=== PATIENT | female | born 1940 | race Caucasian/White ===

== ENCOUNTER 2019-03-18 18:35 | Emergency (ER) | payer MEDICARE ==
[~2019-03-18] VITALS: Ht 157.5 cm; Wt 45.4 kg
[2019-03-18] MEDS ORDERED: NAPR220 PO (18:49)
[2019-03-18 19:40] LABS: BASOPHILS ABSOLUTE AUTO 0.05 K/mm3 (0.00-0.23); BASOPHILS PERCENT AUTO 1 % (0-2); EOSINOPHILS ABSOLUTE AUTO 0.12 K/mm3 (0.00-0.68); EOSINOPHILS PERCENT AUTO 2 % (0-6); Hematocrit 40.1 % (33.0-51.0); Hemoglobin 12.6 g/dL (11.5-16.0); IMMATURE GRAN ABSOLUTE AUTO 0.02 K/mm3 (0.00-0.10); IMMATURE GRAN PERCENT AUTO 0 % (0-1); LYMPHOCYTES ABSOLUTE AUTO 1.18 K/mm3 (0.84-5.20); LYMPHOCYTES PERCENT AUTO 19 % (21-46); MONOCYTES ABSOLUTE AUTO 0.37 K/mm3 (0.16-1.47); MONOCYTES PERCENT AUTO 6 % (4-13); Mean Corpuscular HGB 28.8 pg (26.0-34.0); Mean Corpuscular HGB Conc 31.4 g/dL (31.5-36.5); Mean Corpuscular Volume 92 fL (80-100); Mean Platelet Volume 10.1 fL (9.1-12.4); NEUTROPHILS ABSOLUTE AUTO 4.35 K/mm3 (1.96-9.15); NEUTROPHILS PERCENT AUTO 71 % (41-73); Platelet Count 273 K/mm3 (150-400); RDW Coefficient Variation 12.6 % (11.7-14.2); RDW Standard Deviation 42.9 fL (35.1-46.3); Red Blood Cell Count 4.37 M/mm3 (3.80-5.20); White Blood Cell Count 6.09 K/mm3 (4.00-11.30)
[2019-03-18 19:56] LABS: Troponin I <0.015 ng/mL (0.000-0.040)
[2019-03-18 19:57] LABS: Alanine Aminotransfer (ALT/SGP 12 U/L (12-78); Albumin, Blood 3.9 g/dL (3.4-5.0); Albumin/Globulin Ratio 1.3 (0.8-1.8); Alk Phos 65 U/L (50-136); Anion Gap 3 mmol/L (6-16); Aspartate Aminotrans (AST/SGOT 18 U/L (12-37); Bilirubin, Total 0.5 mg/dL (0.1-1.0); Blood Urea Nitrogen 26 mg/dL (8-24); Bun/Creatinine Ratio 40.4 (12.0-20.0); CO2, Blood 27 mmol/L (21-32); Chloride, Blood 108 mmol/L (98-108); Creatinine, Blood 0.64 mg/dL (0.40-1.00); Globulin, Blood 3.1 g/dL (2.2-4.0); Glomerular Filtration Rate >60 (60-); Glucose, Blood 141 mg/dL (70-99); Potassium, Blood 4.6 mmol/L (3.5-5.5); Sodium, Blood 138 mmol/L (136-145)
== END 2019-03-18 20:21 | disposition home or self-care (01) ==
LOC: ER 18:35
PROVIDERS: Physician Assistant
DX: R55 Syncope and collapse (principal); M54.9 Dorsalgia, unspecified; G89.29 Other chronic pain; Z87.891 Personal history of nicotine dependence
CPT/HCPCS: 70450; 71046; 80053; 84484; 85025; 93005; 93010; 99285-25

== ENCOUNTER 2019-05-07 18:40 | Emergency (ER) | payer MEDICARE ==
[~2019-05-07] VITALS: Ht 167.6 cm; Wt 40.8 kg
[~2019-05-07 18:40] MED LIST: NAPR220 PO
[2019-05-07 19:43] LABS: BASOPHILS ABSOLUTE AUTO 0.04 K/mm3 (0.00-0.23); BASOPHILS PERCENT AUTO 0 % (0-2); EOSINOPHILS ABSOLUTE AUTO 0.06 K/mm3 (0.00-0.68); EOSINOPHILS PERCENT AUTO 1 % (0-6); Hematocrit 38.1 % (33.0-51.0); Hemoglobin 12.3 g/dL (11.5-16.0); IMMATURE GRAN ABSOLUTE AUTO 0.06 K/mm3 (0.00-0.10); IMMATURE GRAN PERCENT AUTO 1 % (0-1); LYMPHOCYTES ABSOLUTE AUTO 1.01 K/mm3 (0.84-5.20); LYMPHOCYTES PERCENT AUTO 8 % (21-46); MONOCYTES ABSOLUTE AUTO 0.64 K/mm3 (0.16-1.47); MONOCYTES PERCENT AUTO 5 % (4-13); Mean Corpuscular HGB 28.7 pg (26.0-34.0); Mean Corpuscular HGB Conc 32.3 g/dL (31.5-36.5); Mean Corpuscular Volume 89 fL (80-100); Mean Platelet Volume 9.8 fL (9.1-12.4); NEUTROPHILS ABSOLUTE AUTO 10.95 K/mm3 (1.96-9.15); NEUTROPHILS PERCENT AUTO 86 % (41-73); Platelet Count 304 K/mm3 (150-400); RDW Coefficient Variation 13.2 % (11.7-14.2); RDW Standard Deviation 42.6 fL (35.1-46.3); Red Blood Cell Count 4.28 M/mm3 (3.80-5.20); White Blood Cell Count 12.76 K/mm3 (4.00-11.30)
[2019-05-07 19:57] LABS: Alanine Aminotransfer (ALT/SGP 13 U/L (12-78); Albumin, Blood 3.6 g/dL (3.4-5.0); Albumin/Globulin Ratio 0.9 (0.8-1.8); Alk Phos 101 U/L (50-136); Anion Gap 7 mmol/L (6-16); Aspartate Aminotrans (AST/SGOT 21 U/L (12-37); Bilirubin, Total 0.7 mg/dL (0.1-1.0); Blood Urea Nitrogen 20 mg/dL (8-24); Bun/Creatinine Ratio 38.8 (12.0-20.0); CO2, Blood 27 mmol/L (21-32); Calcium, Blood 9.2 mg/dL (8.5-10.1); Chloride, Blood 104 mmol/L (98-108); Creatinine, Blood 0.52 mg/dL (0.40-1.00); Globulin, Blood 3.8 g/dL (2.2-4.0); Glomerular Filtration Rate >60 (60-); Glucose, Blood 128 mg/dL (70-99); Potassium, Blood 4.1 mmol/L (3.5-5.5); Sodium, Blood 138 mmol/L (136-145); Total Protein, Blood 7.4 g/dL (6.4-8.2)
[2019-05-07 20:51] LABS: Source, Urine Clean Catch
[2019-05-07 21:03] LABS: Blood, Urine 2+ (Neg); Glucose Qualitative, Urine Neg (Neg); Ketones, Urine 2+ (Neg); Leukocyte Esterase, Urine 1+ (Neg); Nitrite, Urine Neg (Neg); Protein, Urine 2+ (Neg); Specific Gravity, Urine 1.025 (1.003-1.022); Urobilinogen, Urine 2+ (Normal)
[2019-05-07 21:08] LABS: Bilirubin, Urine 1+ (Neg)
[2019-05-07 21:09] LABS: Appearance, Urine Clear (Clear); Color, Urine Yellow (P-Yellow); White Blood Cells, Urine 0-2 /hpf (0-5)
[2019-05-07 21:10] LABS: Bacteria Few /hpf; Squamous Epithelial Cells Rare /hpf (Few)
[2019-05-07] MEDS ORDERED: Acetaminophen-1 EAC1 PO (21:32)
[2019-05-07] MEDS ORDERED: Robaxin-750750 MG PO (21:32)
[2019-05-07] MEDS ORDERED: CEPH500 PO (21:32)
== END 2019-05-07 23:53 | disposition home or self-care (01) ==
LOC: ER 18:40
PROVIDERS: Physician Assistant
DX: S39.012A Strain of muscle, fascia and tendon of lower back, initial encounter (principal); N39.0 Urinary tract infection, site not specified; X58.XXXA Exposure to other specified factors, initial encounter
CPT/HCPCS: 36415; 74176; 80053; 81001; 83690; 85025; 87086; 93005; 93010; 96374; 96375; 99284-25; A9270-GY; J2405; J3010; P9612

== ENCOUNTER 2020-03-29 09:26 | Inpatient (IN) | payer MEDICARE ==
[~2020-03-29] VITALS: Ht 162.6 cm; Wt 32.0 kg
[~2020-03-29 09:26] MED LIST changes: +Acetaminophen-1 EAC1 PO; +CEPH500 PO; +ONDA4ODT SL; +Robaxin-750750 MG PO
[2020-03-29 10:28] LABS: BASOPHILS ABSOLUTE AUTO 0.09 K/mm3 (0.00-0.23); BASOPHILS PERCENT AUTO 0 % (0-2); Hematocrit 34.7 % (33.0-51.0); Hemoglobin 11.1 g/dL (11.5-16.0); LYMPHOCYTES ABSOLUTE AUTO 0.35 K/mm3 (0.84-5.20); LYMPHOCYTES PERCENT AUTO 1 % (21-46); MONOCYTES ABSOLUTE AUTO 0.56 K/mm3 (0.16-1.47); MONOCYTES PERCENT AUTO 2 % (4-13); Mean Corpuscular HGB 29.7 pg (26.0-34.0); Mean Corpuscular Volume 93 fL (80-100); RDW Coefficient Variation 16.3 % (11.7-14.2); RDW Standard Deviation 55.6 fL (35.1-46.3); Red Blood Cell Count 3.74 M/mm3 (3.80-5.20); White Blood Cell Count 31.93 K/mm3 (4.00-11.30)
[2020-03-29 10:34] LABS: EOSINOPHILS PERCENT AUTO 0 % (0-6); IMMATURE GRAN ABSOLUTE AUTO 0.22 K/mm3 (0.00-0.10); IMMATURE GRAN PERCENT AUTO 1 % (0-1); Mean Platelet Volume 9.7 fL (9.1-12.4); NEUTROPHILS ABSOLUTE AUTO 30.71 K/mm3 (1.96-9.15); NEUTROPHILS PERCENT AUTO 96 % (41-73); Platelet Count 341 K/mm3 (150-400)
[2020-03-29 10:51] LABS: Magnesium, Blood 2.2 mg/dL (1.6-2.4)
[2020-03-29 10:57] LABS: Alanine Aminotransfer (ALT/SGP 19 U/L (12-78); Albumin, Blood 2.2 g/dL (3.4-5.0); Albumin/Globulin Ratio 0.6 (0.8-1.8); Alk Phos 224 U/L (50-136); Anion Gap 12 mmol/L (6-16); Aspartate Aminotrans (AST/SGOT 39 U/L (12-37); Bilirubin, Total 1.9 mg/dL (0.1-1.0); Blood Urea Nitrogen 55 mg/dL (8-24); Bun/Creatinine Ratio 67.9 (12.0-20.0); CO2, Blood 24 mmol/L (21-32); Chloride, Blood 103 mmol/L (98-108); Creatinine, Blood 0.81 mg/dL (0.40-1.00); Globulin, Blood 3.7 g/dL (2.2-4.0); Glomerular Filtration Rate >60 (60-); Glucose, Blood 108 mg/dL (70-99); Potassium, Blood 4.6 mmol/L (3.5-5.5); Sodium, Blood 139 mmol/L (136-145); Total Protein, Blood 5.9 g/dL (6.4-8.2)
[2020-03-29 11:13] LABS: Source, Urine Catheter
[2020-03-29 11:20] LABS: Appearance, Urine Clear (Clear); Blood, Urine 1+ (Neg); Color, Urine Amber (P-Yellow); Glucose Qualitative, Urine Neg (Neg); Ketones, Urine 2+ (Neg); Leukocyte Esterase, Urine 1+ (Neg); Nitrite, Urine Neg (Neg); Protein, Urine 2+ (Neg); Specific Gravity, Urine 1.025 (1.003-1.022); Urobilinogen, Urine 3+ (Normal)
[2020-03-29 11:36] LABS: Bilirubin, Urine 2+ (Neg)
[2020-03-29 11:38] LABS: Bacteria Few /hpf; Mucus Heavy (0-Heavy); Red Blood Cells, Urine 0-2 /hpf (0-2); Squamous Epithelial Cells Few /hpf (Few)
--- NOTE | 2020-03-29 17:28 | NUR ---
pt arrived to pcu 1 via gurney from ED. pt is emaciated, poor skin turgor, she is not able to answer questions, moans when moved, she apparently lays on her right side continually, lungs are clear in upper davis, dim in bases, resp even and unlabored, no cough noted, severe spinal kyphosis, ext are very cold to touch abhi feet, toes are purple, bruising to bottom of feet, hrr, tele in place running sr per monitor, see strip, 2+ pitting edema noted to b/l le, iv site to right hand is clear and patent, infusing ns bolus at this time, then will turn down to 50mls/hr, bt not auscultated, attends in place, very stiff, curled up on side, skin has multiple wounds, see pictures, dressings placed, bren area is bruised, call light in reach.
--- NOTE | 2020-03-30 01:05 | NUR ---
IV START PT IV CAME OUT OF L HAND. PT WAS LAYING ON SIDE, USING HAND FOR SUPPORT. IV CATHETER CAME PARTIALLY OUT AND KINKED. IV FULLY REMOVED. RESTARTED IV IN R FOREARM. INFUSING WITH NS PER EMAR.
[2020-03-30 04:11] LABS: Hematocrit 31.1 % (33.0-51.0); Mean Corpuscular HGB 29.5 pg (26.0-34.0); Mean Corpuscular HGB Conc 32.2 g/dL (31.5-36.5); Mean Corpuscular Volume 92 fL (80-100); Mean Platelet Volume 10.1 fL (9.1-12.4); Platelet Count 349 K/mm3 (150-400); RDW Coefficient Variation 16.5 % (11.7-14.2); RDW Standard Deviation 55.8 fL (35.1-46.3); Red Blood Cell Count 3.39 M/mm3 (3.80-5.20)
[2020-03-30 04:34] LABS: Alanine Aminotransfer (ALT/SGP 16 U/L (12-78); Albumin, Blood 1.6 g/dL (3.4-5.0); Albumin/Globulin Ratio 0.6 (0.8-1.8); Alk Phos 158 U/L (50-136); Anion Gap 10 mmol/L (6-16); Aspartate Aminotrans (AST/SGOT 23 U/L (12-37); Bilirubin, Total 0.9 mg/dL (0.1-1.0); Blood Urea Nitrogen 46 mg/dL (8-24); Bun/Creatinine Ratio 74.6 (12.0-20.0); CO2, Blood 23 mmol/L (21-32); Calcium, Blood 6.7 mg/dL (8.5-10.1); Chloride, Blood 113 mmol/L (98-108); Creatinine, Blood 0.62 mg/dL (0.40-1.00); Globulin, Blood 2.9 g/dL (2.2-4.0); Glomerular Filtration Rate >60 (60-); Glucose, Blood 81 mg/dL (70-99); Sodium, Blood 146 mmol/L (136-145); Total Protein, Blood 4.5 g/dL (6.4-8.2)
[2020-03-30 04:39] LABS: BAND PERCENT MAN 20 % (0-8); BASOPHILS PERCENT MAN 0 % (0-2); EOSINOPHILS PERCENT MAN 0 % (0-6); MONOCYTES PERCENT MAN 4 % (4-13); NEUTROPHILS ABSOLUTE MAN 24.19 K/mm3 (1.96-9.15); SEG NEUTROPHILS PERCENT MAN 76 % (41-73); TOTAL CELLS COUNTED 100
--- NOTE | 2020-03-30 05:38 | NUR ---
SHIFT SUMMARY PT ALERT, ABLE TO MAKE NEEDS KNOWN. DOES NOT USE CALL LIGHT, MOANS, CALLS OUT WHEN HAS A NEED. ABLE TO STATE NAME, . SP02>90% ON RA. POOR PERFUSION/DIFFICULT TO GET SP02 MONITOR TO READ. TELEMETRY READS SR W/ PACS, HR 70'S-90'S. PT C/O OF 810 PAIN "ALL OVER". PT CALLED OUT "MAMA" "IM SICK" MULTIPLE TIMES. FREQUENT REPOSITIONING, WARM BLANKETS, PILLOWS, AND MEDICATED WITH TYLENOL PER EMAR. PT C/O THIS SHIFT OF "FEEL LIKE I HAVE TO THROW UP." MEDICATED W/ ZOFRAN PER EMAR WITH SUCCESSFUL RELIEF OF NAUSEA. PT SEVERELY EMACIATED, MULTIPLE WOUNDS. VERY WEAK. MEPLEX C/D/I. PT UNABLE TO DRINK WATER W/ STRAW, COULD NOT SUCK. PT ABLE TO DRINK WITH SPOON W/ ASSISTANCE. PT HAD ONE WET ATTENDS THIS SHIFT. ATTENDS C/D IN PLACE. NS INFSUING PER EMAR. PT POTASSIUM WAS 3.0 THIS MORNING. CALL PLACED TO MD ROSALES. MD ROSALES WITH ORDERS FOR IV POTASSIUM. CALL LIGHT IN REACH. WILL CONTINUE TO MONITOR.
--- NOTE | 2020-03-30 07:25 | NUR ---
pt laying in bed, opens eyes with name, asking for water, much more responsive than last night, lungs are clear t/o, dim in bases, resp even and unlabored, no cough noted, hrr, tele in place running sr with pac's, 2+ edema noted to b/l le, is less than last night, pp found with doppler, feet are still cool to touch, but less than last night, iv site to lfa site is clear and patent, infusing fluids and k+ as ordered, btx4, hypoactive, attends in place, skin has multiple wounds and bruisings, pictures in chart, dressings to open wounds, isnt moving herself yet, sheron, call light in reach, gave her some thickened water via spoon, she took that without diff.
--- NOTE | 2020-03-30 12:09 | NUR ---
Rylee sat up in a recliner for a few hrs. O.T. got her back to bed, she isn't wanting to be disturbed at this time. [place], call light in reach.
--- NOTE | 2020-03-30 17:59 | NUR ---
PT HAS BEEN RESTING QUIETLY MOST OF THE DAY, SHE DID TAKE ABOUT 20% OF A SUPPLIMENT, IS ASKING FOR WATER, WILL GIVE THAT AND SOME DINNER, NO FURTHER CHANGES THIS SHIFT, CALL LIGHT IN REACH.
--- NOTE | 2020-03-30 19:34 | NUR ---
Clinical Visit: Called to pt's room to talk to the pt's grandson. She lives with the heron, although it is not clear if he moved in with her (her home), or if she moved into his home. He states that he has gradually, over the last 1 month, watched the pt's condition decline. As he stated, he took the pt to Dr. Koch and was told that she had a UTI. When she wasn't getting better and on the second day she had stopped drinking water, he called the ambulance. He reports that she has become a non-ambulatory person - she has withdrawn from the family and didn't want to come to family dinner. She had stopped eating for a couple weeks and then she stopped drinking anything. He states that she has been telling him, "get away" when he is trying to help clean her in the shower. She is not allowing care from him many time, per his report. His and daughter live with them. is the main caregiver and he fills in after work and takes her to her appointments. This development writer discussed the pt's condition. He is wanting her to remain full code. He has no documentation of pt's wishes. This development writer attempted to talk to her about resusitation after he left. Pt complains of nausea, difficulty breathing, and back pain. This was reported to nurse, Khalida Gaxiola. Grandson was very attentive to pt while he was here visiting.
[2020-03-31 05:28] LABS: BASOPHILS ABSOLUTE AUTO 0.04 K/mm3 (0.00-0.23); BASOPHILS PERCENT AUTO 0 % (0-2); EOSINOPHILS PERCENT AUTO 0 % (0-6); Hematocrit 32.1 % (33.0-51.0); Hemoglobin 10.2 g/dL (11.5-16.0); IMMATURE GRAN ABSOLUTE AUTO 0.16 K/mm3 (0.00-0.10); IMMATURE GRAN PERCENT AUTO 1 % (0-1); LYMPHOCYTES PERCENT AUTO 3 % (21-46); MONOCYTES ABSOLUTE AUTO 0.31 K/mm3 (0.16-1.47); MONOCYTES PERCENT AUTO 2 % (4-13); Mean Corpuscular HGB Conc 31.8 g/dL (31.5-36.5); Mean Corpuscular Volume 91 fL (80-100); NEUTROPHILS ABSOLUTE AUTO 15.83 K/mm3 (1.96-9.15); NEUTROPHILS PERCENT AUTO 94 % (41-73); Platelet Count 327 K/mm3 (150-400); RDW Coefficient Variation 16.9 % (11.7-14.2); RDW Standard Deviation 56.5 fL (35.1-46.3); Red Blood Cell Count 3.52 M/mm3 (3.80-5.20); White Blood Cell Count 16.84 K/mm3 (4.00-11.30)
[2020-03-31 06:20] LABS: Anion Gap 7 mmol/L (6-16); Blood Urea Nitrogen 43 mg/dL (8-24); Bun/Creatinine Ratio 72.1 (12.0-20.0); CO2, Blood 23 mmol/L (21-32); Calcium, Blood 6.7 mg/dL (8.5-10.1); Chloride, Blood 116 mmol/L (98-108); Glomerular Filtration Rate >60 (60-); Glucose, Blood 103 mg/dL (70-99); Potassium, Blood 3.9 mmol/L (3.5-5.5); Sodium, Blood 146 mmol/L (136-145)
--- NOTE | 2020-03-31 07:34 | NUR ---
SHIFT SUMMARY START OF SHIFT PT COMPLAINED OF NAUSEA AND DIFFICULTY BREATHING. PRN ZOFRAN WAS GIVEN AND PT STATED NO MORE NAUSEA. PT WAS ALSO PLACED ON 2LPM VIA NC WITH O2 SATS IN THE HIGH 90'S AND PT WAS NO LONGER SOB. PT WAS ON 2LPM FOR ABOUT 3 HOURS THEN PT PULLED NC AND WAS ON RA WITH O2 SATS IN THE 90'S. BP WAS HYPOTENSIVE AROUND 100 SYSTOLIC WITH HR ABOUT 100BPM T/O SHIFT. PT HAD NO COMPLAINTS OF PAIN AND WAS TURNED EVERY TWO HOURS. PICTURES OF WOUNDS ARE IN THE PT'S CHART, AND ARE DRESSED WITH MEPILEX. PT PULLED OUT IV SO A NEW ONE WAS STARTED. PT SEEMED CONFUSED AT TIMES BUT WAS ABLE TO FOLLOW DIRECTIONS. SHE WOULD CALL OUT WANTING TO GO HOME TO [place] AND THAT SHE WAS SICK AND "READY TO ". PT IS MALNURISHED AND WEAK. PT ASLEEP IN BED, WILL CONTINUE TO MONITOR UNTIL SHIFT CHANGE.
--- NOTE | 2020-03-31 11:50 | NUR ---
LATE ENTRY PT TRANSFERED TO ROOM 310;TELEPHONE REPORT GIVEN TO MAUREEN RN ASSUMING CARE OF PT. PT A&O TO SELF; ANSWERING QUESTIONS APPROPREIATELY. PT REPORTS NAUSEA; MEDCIATED PER EMAR. PT DENIES, SOB, NAUSEA AND DIZZINESS. VSS. NO OTHER ACUTE CHAGNES NOTED DURING SHIFT. PT TRANSFERED AT 1147.
--- NOTE | 2020-03-31 11:59 | NUR ---
PT ARRIVED TO ROOM 310 FROM PCU 1 VIA BED. ORIENTED TO ROOM AND CALL SYSTEM. PT ARRIVED WITH IVF INFUSING, IV ROCEPHIN STARTED AFTER PT ARRIVAL. BED IN LOWEST POSITION, CALL HAQUE IN REACH, WILL CONTINUE TO MONITOR.
--- NOTE | 2020-03-31 15:14 | NUR ---
Clinical Visit: Requested to set up a meeting with the grandson by physician. Call made to pt's grandsonJoe. Attempted to set up a time when he can come in and meet with the physician to discuss plan of care. At this time, he becomes irritable with the phone call and is demanding that the doctor be retrieved and placed on the phone call. He tells this RN that he will NOT be coming to the hospital unless he speaks to the doctor FIRST so that he can be told "what is wrong with my grandma?" Attempted to review pt's condition and findings. This was met with an escalation to yelling by the grandson and the call was ended by himself hanging up. Pt is not oriented to place. She does not know the month or year, and as this proposal writer is asking questions, she begins to cry and states, "I don't know, I don't know." Several attempts made to interact with this pt, however, she is crying and reporting, "I can't breathe, I feel terrible." She reports nausea. Updated bedside nurse, Kandis. Conference with Maria L, charge nurse. She reports that the pt's grandson called the medical floor. She was able to soothe the grandson by reviewing the chart with him. Maria L reports that her conversation led to a resolution and de-escalation of Joe's outburst. Maria L states that the grandson agreed to come visit when he gets off work this afternoon.
--- NOTE | 2020-03-31 18:14 | NUR ---
Clinical Visit; Pt is sitting up in bed on my arrival to the room. Daniel is at bedside and helping pt with a chocolate milk shake and some water. Myron, Joe, is immediately provacative and accusatory in tone and states, "where is the doctor? I told them I would be here at 5:15, so where is the doctor? I can't be here right now, my daughter is sitting in the lobby because you people won't let her in." (Joe's daughter is 11 years old and is not allowed in the hospital due to COVID times protocol for visitors). Joe is standing up and making large gestures with his hands and speaking loudly. "And where the heck did she get this from?" He is showing me the pressure ulcer behind the pt's right ear. He states, "I'd like to know where that came from because that was not there when she came in." At this time, Dr. Koo comes to the room for the conference. During visit, Joe makes such statements as: "See, she looks better. It was just the UTI." "When she stopped eating, I threatened her with taking away her dog and taking away her TV and she still didn't eat. See kiki, I told you you shoulda eaten something." "Lupe, you're refusing care? See, she does this at home too." Several attempts by Dr. Koo to explain resusitation and pt's present condition - all of which are met with loud, explosive statements and constant interruption. Dr. Koo does get the pt's code status changed to DNI/DNR after relaying her conversation with the pt earlier to Joe in which she expressed that she did not want CPR and she did not want intubation. Joe left the hospital in outrage. Reviewed with Dr. Koo after he left. Will attempt to find other family members for this patient. Myron has not produced any paperwork that gives him decision making power for the pt and additionally, he may not be appropriate for decision making given his presentation in the hospital tonight. He displayed a large lack of understanding of Dr. Koo' recommendations or of understanding the pt's current health condition and illness. Palliative care to continue working on this case as pt is very ill and prognosis of recovery is poor. powder worker tnt consult for finding pt's other family members, if any. Joe did mention during conversation last night that his mother is "technically supposed to be taking care of her, but she wasn't, so I brought her [patient] to [facility] last year and then kept her because they weren't takin care of her."
[2020-04-01 05:11] LABS: BASOPHILS ABSOLUTE AUTO 0.02 K/mm3 (0.00-0.23); BASOPHILS PERCENT AUTO 0 % (0-2); EOSINOPHILS PERCENT AUTO 0 % (0-6); Hematocrit 34.2 % (33.0-51.0); Hemoglobin 10.7 g/dL (11.5-16.0); IMMATURE GRAN ABSOLUTE AUTO 0.09 K/mm3 (0.00-0.10); IMMATURE GRAN PERCENT AUTO 1 % (0-1); LYMPHOCYTES ABSOLUTE AUTO 0.76 K/mm3 (0.84-5.20); LYMPHOCYTES PERCENT AUTO 7 % (21-46); MONOCYTES ABSOLUTE AUTO 0.33 K/mm3 (0.16-1.47); MONOCYTES PERCENT AUTO 3 % (4-13); Mean Corpuscular HGB 29.1 pg (26.0-34.0); Mean Corpuscular HGB Conc 31.3 g/dL (31.5-36.5); Mean Corpuscular Volume 93 fL (80-100); Mean Platelet Volume 10.1 fL (9.1-12.4); NEUTROPHILS ABSOLUTE AUTO 9.01 K/mm3 (1.96-9.15); NEUTROPHILS PERCENT AUTO 88 % (41-73); Platelet Count 286 K/mm3 (150-400); RDW Coefficient Variation 17.4 % (11.7-14.2); RDW Standard Deviation 59.9 fL (35.1-46.3); Red Blood Cell Count 3.68 M/mm3 (3.80-5.20); White Blood Cell Count 10.21 K/mm3 (4.00-11.30)
[2020-04-01 05:25] LABS: Anion Gap 4 mmol/L (6-16); Blood Urea Nitrogen 28 mg/dL (8-24); Bun/Creatinine Ratio 62.9 (12.0-20.0); CO2, Blood 25 mmol/L (21-32); Calcium, Blood 6.6 mg/dL (8.5-10.1); Chloride, Blood 118 mmol/L (98-108); Creatinine, Blood 0.45 mg/dL (0.40-1.00); Glomerular Filtration Rate >60 (60-); Glucose, Blood 106 mg/dL (70-99); Potassium, Blood 3.8 mmol/L (3.5-5.5); Sodium, Blood 147 mmol/L (136-145)
--- NOTE | 2020-04-01 18:27 | NUR ---
PT SLEPT MOST OF THE SHIFT, ALERT AND ORIENTED X3 WHEN AWAKE. EXTREMELY POOR APPETITE, TAKES MEDS WITH APPLESAUCE BUT REFUSES MEALS BEYOND A FEW BITES. SHE CAN AND WILL DRINK WATER AND PEPSI IF ABLE TO REACH THEM. SHE WAS ABLE TO SPEAK WITH HER GRANDSON ON THE PHONE THIS AFTERNOON BUT TIRES EASILY. NO ACUTE CHANGES NOTED THIS SHIFT, WILL CONTINUE TO MONITOR AND REPORT TO ONCOMING RN.
--- NOTE | 2020-04-01 19:15 | NUR ---
ASSUMED CARE RECEIVED REPORT FROM LEONARDO BURDICK. ASSUMED CARE OF PT. RESTING COMFORTABLY, NO S/S ACUTE DISTRESS NOTED, RESPS EVEN AND UNLABORED. DENIES NEEDS. CALL LIGHT, POSSESSIONS IN REACH, BED IN LOW POSITION WITH ALARMS ON. WCTM.
--- NOTE | 2020-04-02 07:10 | NUR ---
SHIFT SUMMARY PT RESTING, NO S/S ACUTE DISTRESS NOTED, WAS MONITORED EVERY 1-2 HOURS WITH NEEDS MET. PAIN AND NAUSEA MANAGED WITH MEDS PER EMAR, SOMEWHAT EFFECTIVE. VS REVIEWED. REPOSITIONED T/O NIGHT. NEW PICS IN CHART OF RT CHEEK, ENCOURAGED PT TO LAY ON OPPOSITE SIDE TO PREVENT WORSENING OF PRESSURE SORE. VS REVIEWED. CALL LIGHT AND POSSESSIONS IN REACH, BED IN LOW POSITION WITH ALARM ON. REPORT GIVEN TO TIFFANIE,RNS.
--- NOTE | 2020-04-02 14:51 | NUR ---
pt alone in room this am compalins of headache and nausea updated nursing. Will follow up with plan of care.
--- NOTE | 2020-04-02 17:29 | NUR ---
SHIFT SUMMARY PT AOX4. PT CALLS APPROPRIATELY; HOWEVER VERY LETHARGIC DUE TO MALNUTRITION. ST CAME IN AND REAL ESTATE OFFICE MANAGER FOR CONSULT- WILL PROBABLY BE NEEDING SOME PARENTERAL NUTRITION. PT HAS NO APPETITE AND HAS BEEN NAUSEATED ALL DAY; MEDICATER PER EMAR. PT ALSO C/O HEADACHE; AND MEDICATER PER EMAR. PT HAS A SCATTERED BRUISING, AND ULCER BEHIND EAR- SEE PIC- DIALYSIS RN. ENCOURAGED FLUIDS. BED IS IN THE LOWEST POSITION AND CALL LIGHTS WITHIN REACH.
--- NOTE | 2020-04-02 18:09 | NUR ---
Spiritual care intial note: Mrs. Banuelos appears quite frail and is very tired. she complained of pain in her leg. RN informed. It appeared she was too weak to engage conversation. she seems older than age. No family at bedside. Prayer provided. I will remain available.
--- NOTE | 2020-04-02 18:34 | NUR ---
PT DISCHARGED TODAY VIA WC AND TRANSPORTED TO HOME. PT PROVIDED INSTRUCTIONS AND HANDOUTS. PT ALSO INSTRUCTED FOR UPCOMING APPOINTMENTS. PT WENT HOME WITH PICC LINE FOR ABX FOR 3 MORE DAYS AND WILL BE MANAGING BY HOMEHEALTH. PAYROLL SERVICES ANALYST CAME IN AND EXPLAINED MORE INSTRUCTIONS TO THIS PT.
--- NOTE | 2020-04-02 18:44 | NUR ---
PATIENTS ELÍAS PACK AT BEDSIDE VERY UPSET AND YELLING AT STAFF THAT HE PLANS TO GET HARD CANDY SPINNER INVOLVED BECAUSE HE WAS NOT CONTACTED TODAY. HE IS VERY CONCERNED THAT WOUNDS TO PATIENTS FACE LOOK WORSE THAN WHEN SHE WAS BROUGHT IN. DISCUSSED PATIENTS CURRENT SITUATION AND THAT SHE IS NOT EATING AND IS HAVING SOME FAILURE TO THRIVE. SHOWED HIM THAT WE DID HAVE PICTURES OF PATIENTS WOUND ON ADMIT AND AGAIN TODAY SHOWING THE PROGRESSION OF THE WOUNDS. NOTIFIED DR. MYLES ABOUT ELÍAS BEING HERE AND HIS CONCERNS. DR. MYLES UNABLE TO COME BY AT THIS TIME, BUT WILL BE BY TOMORROW TO SEE PATIENT. I ASSURED SIRENA THAT THE DOCTORS AND THE CARE MANAGERS WILL CONTACT HIM TOMORROW AND THAT A MEETING COULD BE SET UP TO DISCUSS PATIENTS CARE MOVING FORWARD. SIRENA DID CALM DOWN AND SAID HE COULD BE AVAIALBLE ANYTIME TOMORROW FOR A MEETING. HE STATED THAT HE DOES WORK TOMORROW BUT THAT HE LEAVES HIS CELL PHONE WITH HIS AND IF WE CALLED HIS CELL PHONE HIS CAN GET A HOLD OF HIM AT HIS WORK.
--- NOTE | 2020-04-03 05:57 | NUR ---
SHIFT SUMMARY- PT. RESTED T/O THE SHIFT, NO APPARENT DISTRESS NOTED. C/O NA 1X, MEDICATED PER EMAR WITH GOOD EFFECT. PT. REPOSITIONED T/O THE SHIFT AND ENCOURAGED PO INTAKE, ABLE TO USE SIPPY CUP INDEPENDENTLY. HAD 3BM'S DURING THE NIGHT. ATTENDS IN PLACE. NEW MEPILEX DSG'S APPLED TO SACRAL AREA AND LT HIP. TOLERATED WELL. NO OTHER COMPLAINTS T/O THE NIGHT. CALL LIGHT WITHIN REACH AND SIDE RAILS UPX2. WILL CONT TO MONITOR.
--- NOTE | 2020-04-03 10:26 | NUR ---
CALLED ELÍAS RUIZ, AND LEFT A MESSAGE 2X.
--- NOTE | 2020-04-03 14:40 | NUR ---
Pt resting in bed this morning. wrsening facial wound. Called her daughter Cleopatra. Review of patient hospitalization and needs. Cleopatra is willing to be POA and decision maker. Asked her to call her nephew and family to relay that we will support and help her nephew any way we can. Cleopatra relayed it was difficult situation ofr family. He has done ok caring for her but he sis very stressed. She will contact family plan is to facilitate face time or zoom with her mother. updated care connector and nursing. Daughter relayed that her mother has had years of eating disorders and worried about her weight and has had great struggles with food. pt kps score is 30% if her facial wound compromises swallow or airway suggest hospice and supportive care sooner than later.
--- NOTE | 2020-04-03 17:02 | NUR ---
PT GRANDSON CALLED TODAY, AND AWARE THAT DOCTOR WILL ONLY BE HERE TILL 5; HE STATED THAT HE WANTED TO BE HERE TODAY; HOWEVER HE GOT OFF WORK LATE. HE ALSO STATED THAT HE IS AWARE THAT MARK WHO IS THE DAUGHTER OF THE PT WILL BE INVOLVE FOR THIS PATIENT CARE. AND HE STATED THAT HE WANTS TO JOIN THE CONFERENCE WITH MARK, THE IAN LUNA AND THE PT.
--- NOTE | 2020-04-03 18:34 | NUR ---
SHIFT SUMMARRY PT ALERT ORIENTED; VERY HARD OF HEARING. PT IS NOW ON CLINIMIX AND LIPIDS SINCE SHE CANT TOLERATE PO. PT REFUSED PO MEDS THIS MORNING AND NAUSEATED; MEDICATED PER EMAR. PT MEPELEX ON COCCYX INTACT AND CHANGED TODAY- MULTIPLE ULCERS. PT ALSO HAS ULCER ON HER CHEEK- SEE PIC. CARLEEN PATTERSON CHANGED THE DRESSING TODAY. GRANDSON SUPPOSED TO HAVE A MEETING WITH THE DR TODAY; CALLED HIM AND LEFT A MESSAGE THIS MORNING. HE CALLED BACK LATE IN THE AFTERNOON; AND HE'S AWARE THAT DR BARR WON'T BE HERE ANYMORE AROUND THAT TIME. PT STATED THAT HE WANTED TO HAVE CONFERENCE WITH MARK- THE DAUGHTER OF PT WITH AND COOPERER POSSIBLY TOMORROW . ENCOURAGED PO FOR THIS PT. BED IS IN THE LOWEST POSITION AND CALL LIGHTS WITHIN REACH.
--- NOTE | 2020-04-03 22:56 | NUR ---
REPOSITIONED REQUESTED DRINK OF WATER, BUT UNABLE TO DRINK FROM SIPPY CUP. TOLERATED WATER WITH STRAW. IV CLINIMIX INFUSING. SEE MAR FOR DETAILS. CALL LIGHT IN REACH
--- NOTE | 2020-04-04 03:45 | NUR ---
SHIFT SUMMARY HAS BEEN AWAKE AT INTERVALS. INTERMITTENT CALLING OUT FOR WATER, ETC. USING STRAW THIS SHIFT SHE VOICED INABILITY TO DRINK FROM THE SIPPY CUP. SRESSINGS INTACT. REPOSITIONED OFTEN. CLINIMIX INFUSING PER JUL. CALL LIGHT IN REACH
--- NOTE | 2020-04-04 10:30 | NUR ---
Called pt daughter this morning to review her needs. Cleopatra spoke with all the family yesterday and will take over as decision maker. Her sister is recovering from a hip fracture and the patients nephew is struggling with hte stress and burden. Cleopatra is planning on coming to [place] to assist with her mothers care. We had a zoom call with the patient. It was very theraputic for the patient. ANd informative for Cleopatra to see her decline. We discussed her symptoms and poor tolerance of food and review of speech evmaribell and her mothers further decline in appetite.
--- NOTE | 2020-04-04 17:33 | NUR ---
ALERT. VERY MALNOURISHED. CACHETIC LOOKING. KYPHOSIS. HAS REFISED ALL FOOD TODAY. SLEEPING MOST OF SHIFT. MEPILEX TO RT FACE, COCCYX AND BILATERAL FEET. WEAK PULSES UPPER EXT. PULSES VIA DOPPLER LOWER EXT. UNLABORED RESPIRATIONS. TURNED, BUT WILL CURL INTO BALL ONTO RT SIDE. TM
--- NOTE | 2020-04-05 03:28 | NUR ---
SHIFT SUMMARY: 79 Y/O FEMALE ON COMFORT CARE HAD UNEVENTFUL NIGHT; PT ALERT AND ORIENTED X 2, ABLE TO FOLLOW SIMPLE VERBAL COMMANDS; PT RIGHT FACIAL/NECK AREA SWOLLEN WITH EDMATOUS NOTED AND BLACKENED AREA ALONG NECK (PT WILL NOT KEEP MEPLEX APPLIED TO SITE SHE KEEPS REMOVING AFTER THIS NURSE APPLIED X 2); BED ALARM APPLIED, BED LOW POSITION WITH CALL LIGHT AT SIDE.
--- NOTE | 2020-04-05 07:27 | NUR ---
DENIES PAIN OR NAUSEA. LAYS CURLED UP RT SIDE. SWELLING WITH START OF ULCER TO RT CHEEK. REFUSES MEPILEX TO AREA.
--- NOTE | 2020-04-05 11:15 | NUR ---
TURNED TO LEFT SIDE. MULTIPLE MEPILEXS PLACED TO OPEN WOUNDS; RT INNER THIGH, RT CHEEK, MID BACK LEFT SIDE, AND BUTTOCK.
--- NOTE | 2020-04-05 16:27 | NUR ---
SLEEPING MOST OF SHIFT. MEDICATED FOR NAUSEA AND PAIN. PATIENT WILL MOAN AND CALL OUT "MAMA" INFREQUENTLY. WHEN RN GOES IN WITHIN 30 SECONDS PATIENT APPEARS TO BE SLEEPING WITH PEACEFUL LOOKING FACE. POSSIBLY HAVING DREAMS. PATIENT STS TOO PAINFUL TO LIE ON LEFT SIDE DUE TO LEFT HIP PAIN. MEPILEX TO; BUTTOCK, RT INNER THIGH, BACK AND FACE. APPEARS COMFORTABLE AT THIS TIME. UNABLE TO PLACE PATIENT ON BACK DUE TO SEVERE SPINAL CURVATURE. REFUSED ALL FOOD OR DRINK. WCTM
--- NOTE | 2020-04-05 18:33 | NUR ---
Spiritual care note: Rylee appears frail. She nodded 'yes' to prayer. Helped DIRECTOR OF SOCIAL MEDIA MARKETING adjust pt in bed for comfort. Mrs. Banuelos told me she had pain in her hip and has been unable to rest. Asked palliative care to take a look at medications. Mrs. Banuelos was too weak for in-depth conversation. Instead, I provided words of assurance, presence of love, and prayer. [employer] services will remain available.
--- NOTE | 2020-04-05 22:21 | NUR ---
PT ON COMFORT CARE MEASURES; PT MOANING AND CRYING SOFTLY TO SELF; ATIVAN 0.5MG AND ROXANOL 20MG PO GIVEN; ALERT AND ORIENTED X 2; PT REQUIRES ASSISTANCE WITH ALL ADLS/IADLS.
--- NOTE | 2020-04-06 03:16 | NUR ---
SHIFT SUMMARY: 79 Y/O SLENDER FEMALE RESTED COMFORTABLY ALL SHIFT; PT REQUIRED ATIVAN 0.5MG AND ROXANOL 20MG SL X 1 WITH GOOD RELIEF AFTER MOANING LOUDLY IN ROOM; COMFORT CARE MEASURES CONTINUED THIS SHIFT; ALERT AND ORIENTED X 2, ABLE FOLLOW SIMPLE VERBAL COMMANDS; BED ALARM APPLIED, CALL LIGHT AT SIDE.
--- NOTE | 2020-04-06 12:32 | NUR ---
Spiritual care visit conducted. Patient is lying in bed and moaning. Patient tells me that she is in some pain and is not sure where. Patient states that she does not have any family in the area and she is does not have a uatsdin. I sit with patient and provide soft touch and therapeutic listening. Patient says that she would be amenable to prayer which I gladly provide. I talk with patient's RN Will who tells me that he is going in with pain meds for patient and he expresses his concerns for her emotional well being. I will continue to visit patient to assist in the emotional/spiritual issues brought on by her situation.
--- NOTE | 2020-04-06 17:14 | NUR ---
PT PLEASANT TODAY. PAIN AND ANXIETY MANAGED WITH AVAIL MEDS. PT OCC MOANS. MED PER EMAR. TURNING HELPS. DRESSING ON FACE/NECK CHANGED TODAY. NO NEW CONCERNS AT THIS TIMIE. BED IN LOW POSITION, CALL LITE IN REACH, BED ALARM ONFOR SAFETY
--- NOTE | 2020-04-06 21:23 | NUR ---
PT YELLING AND MOANING LOUDLY IN ROOM; ATIVAN 0.5MG (CRUSHED) AND ROXANOL 20MG SL GIVEN TOGETHER; PT ALERT PERSON ONLY; BED ALARM APPLIED.
--- NOTE | 2020-04-07 03:26 | NUR ---
SHIFT SUMMARY: 79 Y/O FEMALE ON COMFORT CARE MAINTAINED; PT OCCASIONALLY MOANS OUT AND YELLS FOR HER MOMMA; PT GIVEN ROXANOL 20MG AND ATIVAN 0.5MG PO (CRUSHED WITH ROXANOL) WITH GOOD RELIEF FELT; PT ALERT PERSON ONLY AND OPENS EYES ONLY WHEN TURNED; PT HAS NUMEROUS WOUNDS TO ENTIRE BODY MEPLEX DRESSINGS MAINTAINED TO ALL SITES; BED ALARM APPLIED, BED LOW POSITION WITH CALL LIGHT AT SIDE.
--- NOTE | 2020-04-07 13:53 | NUR ---
Comfort Care Visit Pt resting in bed with her eyes closed. Pt yells out help me with her eyes remaining closed. No other S/S of distress at this time. Offered gentle and therapeutic voice for Pt which tends to calm her. Spoke with Bedside RN Colette, discussed case and reviewed comfort medications. Spoke with Dr Loo and discussed case. Changed Pt's Ativan frequency from q 6 hours PRN to q 4 hours PRN per V/O from Dr Loo. Palliative Care will remain available.
--- NOTE | 2020-04-07 18:13 | NUR ---
SHIFT SUMMARY PT MOANING EARLIER TODAY CALLING OUT HELP ME AND MOMMA. MEDICATED BUT WOULD STILL CALL OUT. BATHED AND REPOSTIONED WITH DECREASE IN MOANING. DAUGHTER AND GRANDDAUGHTER IN TO VISIT FOR A SHORT TIME THIS AFTERNOON. THEY REPOR SHE WOULD OCC OPEN HER EYES BUT DID NOT COMMUNICATE.
--- NOTE | 2020-04-07 21:18 | NUR ---
PT MOANING LOUDLY IN BED AND CRYING OUT FOR HER MOM; NO FAMILY AT SIDE; ATIVAN 0.5MG (CRUSHED AND MIXED WITH ROXANOL 20MG) GIVEN SL AND REPOSITIONED X 2 ASSIST; BED ALARM APPLIED.
--- NOTE | 2020-04-08 03:20 | NUR ---
Daughter was at bedside, tearful and appropriately expressive. Daughter reflects upon the patients life and divulges her thoughts and emotions related to the patients transition. Pastoral presence, words of comfort, and consolatory prayer extended. Daughter continues to remain at bedside. Will remain available for prospective support.
--- NOTE | 2020-04-08 03:40 | NUR ---
SHIFT SUMMARY: 79 Y/O FEMALE ON COMFORT CARE MEASURES; PT NON RESPONSIVE TOWARDS END OF SHIFT WHILE TYPING THIS DOCUMENT AT THIS TIME; DAUGHTER AT SIDE AND PASTOR MAJANO CAME AROUND FOR PASTORAL CARE; PT REPOSITIONED Q2H BY STAFF; BED ALARM APPLIED, BED LOW POSITION WITH CALL LIGHT AT SIDE.
--- NOTE | 2020-04-08 06:18 | NUR ---
WHEN THE PT PASSED, THE FAMILY MEMBER MARK WAS IN THE ROOM. MARK WAS ASKED BY LEONARDO SHAW, WHICH HOME SHE WANTED. MARK STATED SHE DID NOT KNOW, SHE WAS GIVEN A LIST OF HOMES IN THIS AREA, SHE CHOSE [facility] IN [place]. ABOUT THE SAME TIME THE HOME TRANSPORTER CAME TO [employer]EL[employer] THE PT, WE GOT A PHONE CALL FROM A HOME IN [facility] CALLED [facility] STATING THAT THE PT HAS HOME INSURANCE WITH THEM. THEY ARE NOT ABLE TO PICK THE PT UP RIGHT AWAY, THEY STATED THEY USUALLY CONTACT A TRANSPORTER HERE TO ARRANGE THE TRANSPORT FROM HERE TO THEM. HOWEVER I EXPLAINED THAT WE DO NOT HAVE A MORGUE HERE TO HOLD THE PT IN. SHE STATED SHE WANTED TO SPEAK WITH THE HOME THAT IS PICKING THE PT UP TO DISCUSS TRANSPORT TO THEM. I EXPLAINED TO HER THAT THE PERSON HERE PICKING UP THE PT IS JUST THE TRANSPORTER AND NOT AUTHORIZED TO MAKE THAT DECISION OR HAVE THAT DISCUSSION WITH HER BUT THAT THEY SAID THE HOME DIRECTORS HAVE A MEETING AT ABOUT 8 OR 9 AM TO START TALKING TO THE FAMILY AND THE OTHER HOME TO MAKE TRANSPORT ARRANGEMENTS. SHE STATED IN THAT CASE WE WOULD JUST HAVE TO GO AHEAD AND ALLOW THE HOME TRANSPORTER TO GO AHEAD AND TAKE THE PT TO THE HOME THAT CHOSE IN THIS AREA.
== END 2020-04-08 04:40 | DRG 871 ==
LOC: ER 09:26 → ERHOLD 13:19 → PCU 16:00 → MEDS 03-31 11:56
PROVIDERS: Emergency Medicine; Nurse Practitioner Acute Care; Student in an Organized Health Care Education/Training Program; ADMIT Internal Medicine
DX: A41.9 Sepsis, unspecified organism (principal); L89.613 Pressure ulcer of right heel, stage 3; L89.623 Pressure ulcer of left heel, stage 3; L89.123 Pressure ulcer of left upper back, stage 3; L89.113 Pressure ulcer of right upper back, stage 3; L89.153 Pressure ulcer of sacral region, stage 3; L89.893 Pressure ulcer of other site, stage 3; E43 Unspecified severe protein-calorie malnutrition; G92 Toxic encephalopathy; J69.0 Pneumonitis due to inhalation of food and vomit; Z68.1 Body mass index [BMI] 19.9 or less, adult; Z51.5 Encounter for palliative care; Z20.828 Contact with and (suspected) exposure to other viral communicable diseases; R65.20 Severe sepsis without septic shock; D64.9 Anemia, unspecified; E87.6 Hypokalemia; I73.9 Peripheral vascular disease, unspecified; R62.7 Adult failure to thrive; Z74.01 Bed confinement status; R13.10 Dysphagia, unspecified; M81.0 Age-related osteoporosis without current pathological fracture; Z87.891 Personal history of nicotine dependence; Z66 Do not resuscitate
CPT/HCPCS: 36415; 71045; 80048; 80053; 81001; 83605; 83735; 85025; 87040; 87086; 92526; 92610; 93005; 93010; 93925; 96361; 96365; 96372-59; 96375; 97110; 97162; 97165; 99285-25; A9270; J0456; J0696; J1650; J2405; J3480; J7030; J7050; U0004